=== PATIENT | female | born 1985 | race Asian ===

== ENCOUNTER 2018-12-27 21:46 | Emergency (ER) | payer SELFPAY ==
[~2018-12-27] VITALS: Ht 157.5 cm; Wt 61.2 kg
--- NOTE | 2018-12-27 22:00 | NUR ---
ED Nurse Note: Blood and urine collected; sent down to lab.
--- NOTE | 2018-12-27 22:03 | Emergency Room Report ---
History of Present Illness General Chief Complaint: Nausea Source: Patient Present Illness HPI Patient is a 33-year-old female presented after increased generalized lower abdominal fullness. Patient had prior history of reported . She was noted to have some increased nausea. She denies taking any nausea medications at this time.Patient denies any fever. She had no complaints of pain at this time. Allergies: Coded Allergies: IODINE AND IODIDE CONTAINING PRODUC (Verified Allergy, Intermediate, Hives , 12/27/18) Patient History Past Medical History: see triage record Last Menstrual Period: august Now: Yes - possible : 6 Para: 2 Reviewed Nursing Documentation: PMH: Agreed; PSxH: Agreed Nursing Documentation-PMH Past Medical History: No Stated History Review of Systems All Other Systems: negative except mentioned in HPI Physical Exam Vital Signs Date Time Temp Pulse Resp B/P (MAP) Pulse Ox O2 Delivery O2 Flow Rate FiO2 12/27/18 21:51 98.2 99 16 123/72 98 Room Air Sp02 EP Interpretation: reviewed, normal General Appearance: normal inspection, well appearing, no apparent distress, alert, GCS 15 Head: atraumatic ENT: normal ENT inspection, hearing grossly normal, normal voice Neck: normal inspection, full range of motion, supple, no bony tend Respiratory: normal inspection, lungs clear, normal breath sounds, no respiratory distress, no retraction, no wheezing Cardiovascular #1: regular rate, rhythm, no edema Gastrointestinal: normal inspection, normal bowel sounds, non tender, soft, no guarding, no hernia Genitourinary: no CVA tenderness Musculoskeletal: normal inspection, back normal, normal range of motion Neurologic: normal inspection, alert, oriented x3, responsive, print developer III-XII nml as tested, speech normal Psychiatric: normal inspection, judgement/insight normal, mood/affect normal Skin: normal inspection, normal color, no rash Medical Decision Making Diagnostic Impression: Primary Impression: Nausea and vomiting in ER Course Patient presented for increased nausea. Differential diagnosis include was not limited to intrauterine , ectopic , ovarian cyst, torsion among others. Because of complexity of patient's case laboratory testing and imaging studies were ordered. Patient was noted to have Positive urine test. Bedside ultrasound showed intrauterine with small pole with heart rate approximately 150s there is no free fluid noted in the pelvis. Patient appears to be stable. Patient will be discharged home.Quantitative beta-hCG was 181,000. Patient was advised to follow-up with her [employer]. She was given prescription for Diclegis. Patient appears to be well-hydrated. Labs Test 12/27/18 22:03 12/27/18 22:10 12/27/18 22:20 White Blood Count 15.2 K/UL (4.8-10.8) Red Blood Count 4.75 M/UL (4.20-5.40) Hemoglobin 10.6 G/DL (12.0-16.0) Hematocrit 35.0 % (37.0-47.0) Mean Corpuscular Volume 74 FL (80-99) Mean Corpuscular Hemoglobin 22.3 PG (27.0-31.0) Mean Corpuscular Hemoglobin Concent 30.2 G/DL (32.0-36.0) Red Cell Distribution Width 19.8 % (11.6-14.8) Platelet Count 385 K/UL (150-450) Mean Platelet Volume 5.3 FL (6.5-10.1) Neutrophils (%) (Auto) 71.2 % (45.0-75.0) Lymphocytes (%) (Auto) 19.9 % (20.0-45.0) Monocytes (%) (Auto) 6.6 % (1.0-10.0) Eosinophils (%) (Auto) 1.6 % (0.0-3.0) Basophils (%) (Auto) 0.7 % (0.0-2.0) Urine HCG, Qualitative Positive (NEGATIVE) Last Vital Signs Date Time Temp Pulse Resp B/P (MAP) Pulse Ox O2 Delivery O2 Flow Rate FiO2 12/27/18 21:51 98.2 99 16 123/72 98 Room Air Status: improved Disposition: HOME, SELF-CARE Condition: Stable Scripts Doxylamine/Pyridoxine Hcl (BAY PRUETT 10-10 MG TABLET) 1 Each Tablet. 1 EACH PO QHS, #20 TAB Prov: Crow Guillen MD 12/27/18 Crow Guillen MD Dec 27, 2018 22:03
[2018-12-27 22:33] LABS: BASOPHILS % (AUTO) 0.7 % (0.0-2.0); EOSINOPHILS % (AUTO) 1.6 % (0.0-3.0); HEMOGLOBIN 10.6 G/DL (12.0-16.0); LYMPHOCYTES % (AUTO) 19.9 % (20.0-45.0); MEAN CORPUSCULAR VOLUME 74 FL (80-99); MONOCYTES % (AUTO) 6.6 % (1.0-10.0); NEUTROPHILS % (AUTO) 71.2 % (45.0-75.0); PLATELET COUNT 385 K/UL (150-450); RED BLOOD COUNT 4.75 M/UL (4.20-5.40); RED CELL DISTRIBUTION WIDTH 19.8 % (11.6-14.8); WHITE BLOOD COUNT 15.2 K/UL (4.8-10.8)
[2018-12-27 22:45] VITALS: BP 123/72
[2018-12-27] MEDS ORDERED: DICLEGIS DR 101 EACH PO (23:14)
[2018-12-27 23:25] VITALS: BP 123/72
--- NOTE | 2018-12-27 23:25 | NUR ---
ED Nurse Note: Patient cleared for discharge per ERMD. AO4 NAD. VSS. Patient given prescriptions and discharge instructions; verbalized understanding. ID band removed. Patient ambulated steady with all personal belongings.
== END 2018-12-27 23:25 | disposition home or self-care (01) ==
LOC: EMR 22:05
DX: O21.9 Vomiting of pregnancy, unspecified (principal); O26.891 Other specified pregnancy related conditions, first trimester; R11.0 Nausea; Z91.048 Other nonmedicinal substance allergy status
CPT/HCPCS: 36415; 81025; 84702; 85025; 86900; 86901; 99283